=== PATIENT | female | born 1985 | race Caucasian/White ===

== ENCOUNTER 2016-06-13 08:38 | Inpatient (IN) | payer BC ==
[2016-06-13] MEDS ORDERED: Witch Hazel PAD* JAR TOPICAL PRN (09:28)
[2016-06-13] MEDS ORDERED: Dibucaine 1% 28.35 GM TUBE PR PRN (09:28)
[2016-06-13] MEDS ORDERED: Ibuprofen TAB* 600 MG PO PRN (09:28)
[2016-06-13] MEDS ORDERED: Glycerin ADULT SUPP PR PRN (09:28)
[2016-06-13] MEDS ORDERED: oxyCODONE/Acetamin 5/325 MG* TAB PO PRN (09:28)
[2016-06-13] MEDS: Acetaminophen TAB* 325 MG PO PRN ×3 (11:11→19:41)
[2016-06-13] MEDS ORDERED: Simethicone TAB* 80 MG TAB.CHEW PO SCH (12:30)
[2016-06-13] MEDS: Docusate CAP* 100 MG PO SCH ×2 (14:00→21:00)
[2016-06-14] MEDS: Acetaminophen TAB* 325 MG PO PRN ×3 (00:07→11:30)
[2016-06-14 07:49] LABS: Hematocrit 38 % (35-47); Hemoglobin 13.1 g/dl (12.0-16.0); Mean Corpuscular HGB Conc 34 g/dl (31-36); Mean Corpuscular Hemoglobin 31 pg (27-31); Mean Corpuscular Volume 90 fL (80-97); Mean Platelet Volume 9 um3 (7.4-10.4); Red Blood Count 4.24 10^6/ul (4.0-5.4); Red Cell Distribution Width 15 % (10.5-15)
[2016-06-14] MEDS: Docusate CAP* 100 MG PO SCH ×3 (09:00→21:00)
[2016-06-14] MEDS ORDERED: Ferrous Gluconate TAB* 324 MG TAB PO SCH (09:00)
[2016-06-15 07:48] VITALS: BP 131/77
[2016-06-15] MEDS: Docusate CAP* 100 MG PO SCH (09:09)
== END 2016-06-15 12:19 | disposition home or self-care (01) | DRG 560 ==
LOC: MCHOBOUT 08:38 → MCHOB 08:41
PROVIDERS: ADMIT Midwife; ATTEND Nurse Practitioner
PROC: 10E0XZZ Delivery of Products of Conception, External Approach (ICD-10-PCS; principal; 2016-06-13)
DX: O69.2XX0 Labor and delivery complicated by other cord entanglement, with compression, not applicable or unspecified (principal); Z91.041 Radiographic dye allergy status; Z3A.36 36 weeks gestation of pregnancy; Z37.0 Single live birth
CPT/HCPCS: 36415; 85025; A9270-GY